=== PATIENT | female | born 1935 | race Caucasian/White ===

== ENCOUNTER 2020-01-29 15:29 | Emergency (ER) | payer MEDICARE, BC ==
[2020-01-29] MEDS ORDERED: Sodium Chloride 0.9% 10 ML Syringe FLUSH PRN (15:37)
[2020-01-29] MEDS ORDERED: Diltiazem 50 MG/10 ML SDV IVPUSH ONE (16:03)
--- NOTE | 2020-01-29 16:10 | EDM.PDOC ---
ED HPI GENERAL MEDICAL PROBLEM - General Chief Complaint: General Stated Complaint: ER Time Seen by Provider: 01/29/20 15:29 Source of Information: Reports: Patient History Limitations: Reports: No Limitations - History of Present Illness INITIAL COMMENTS - FREE TEXT/NARRATIVE: Patient comes in the emergency department complaints of rapid heartbeat and an episode of diaphoresis. Patient was being seen over at the clinic and states that she was instructed to report to the emergency department for further evaluation and management. Her primary care provider had contacted the emergency department stated that the patient had an episode of diaphoresis and shortness of breath approximately 8 or 9 AM this morning the loss about 5 to 10 minutes. The patient has advised that she has had this happen in the past and it goes away on its own. The patient states that it did go away on its own again this morning without any intervention. She denies Doing anything that made the symptoms worse or better she states that just disappeared after she ate some protein and a bowl of cereal. While in the clinic PCP completed an EKG and it did show rapid atrial fibrillation with noted changes. Patient remains symptom-free throughout the rest of the day. She also states that she currently just feels weak and tired but denies feeling a diaphoresis or other chest palpitations that she did this morning. Patient denies any recent COVID-19 symptoms or fever, dizziness, lightheadedness, increased shortness of breath above her baseline, abdominal pain, concerns, or peripheral edema. Onset: Sudden, Gradual Location: Reports: Chest Quality: Reports: Other Severity: Mild Improves with: Reports: None Worsens with: Reports: None Context: Reports: Other Associated Symptoms: Reports: Diaphoresis Treatments [facility] DIRECT[facility]: Reports: Other (see below) (was seen in the clinic. EKG completed) - Related Data Allergies Allergy/AdvReac Type Severity Reaction Status Date / Time MURIEL Inhibitors Allergy Bronchospas Verified 01/29/20 16:02 ms amoxicillin [Amoxicillin] Allergy Hives Verified 01/29/20 16:02 influenza virus vaccine, Allergy Nausea and Verified 01/29/20 16:02 specific Vomiting [Influenza Virus Vacc,Specific] tape Allergy Rash Uncoded 06/01/13 10:59 Home Meds: Home Meds Desoximetasone [Topicort 0.25% Oint] 1 - 2 applic TOP BID 06/01/13 [History] Ezetimibe [Zetia] 10 mg PO DAILY 06/01/13 [History] Losartan [Cozaar] 100 mg PO DAILY 06/01/13 [History] Covington-3 Fatty Acids [Covington-3] 1,000 mg PO DAILY 06/01/13 [History] Saline Nasal Gel 1 applic NASBOTH BID PRN 06/01/13 [History] Viactiv 2 tab PO DAILY 06/01/13 [History] hydroCHLOROthiazide [Hydrochlorothiazide] 25 mg PO DAILY 06/01/13 [History] Magnesium Oxide 400 mg PO DAILY 01/29/20 [History] Meclizine [Antivert] 12.5 - 25 mg PO Q4H PRN 01/29/20 [History] Naproxen Sodium [Aleve] 220 mg PO DAILY 01/29/20 [History] Potassium Gluconate [Potassium] 99 mg PO DAILY 01/29/20 [History] Ubidecarenone [Co Q-10] 100 mg PO DAILY 01/29/20 [History] Zinc 50 mg PO DAILY 01/29/20 [History] ED ROS GENERAL - Review of Systems Review Of Systems: Comprehensive ROS is negative, except as noted in HPI. Constitutional: Reports: No Symptoms HEENT: Reports: No Symptoms Respiratory: Reports: No Symptoms Cardiovascular: Reports: Dyspnea on Exertion (chronic and occurs daily ), Palpitations Endocrine: Reports: No Symptoms GI/Abdominal: Reports: No Symptoms : Reports: No Symptoms Musculoskeletal: Reports: No Symptoms Skin: Reports: No Symptoms Neurological: Reports: No Symptoms Psychiatric: Reports: No Symptoms Hematologic/Lymphatic: Reports: No Symptoms Immunologic: Reports: No Symptoms ED EXAM, GENERAL - Physical Exam Exam: See Below Exam Limited By: No Limitations General Appearance: Alert, WD/WN, No Apparent Distress Eye Exam: Bilateral Eye: EOMI, PERRL Nose: Normal Inspection, Normal Mucosa, No Blood Throat/Mouth: Normal Inspection, Normal Voice, No Airway Compromise Head: Atraumatic, Normocephalic Neck: Normal Inspection, Supple, Non-Tender, Full Range of Motion Respiratory/Chest: No Respiratory Distress, Lungs Clear, Normal Breath Sounds, No Accessory Muscle Use, Chest Non-Tender Cardiovascular: No Edema, No JVD, No Rub, Tachycardia, Irregularly Irregular Peripheral Pulses: 4+: Radial (L), Radial (R), Dorsalis Pedis (L), Dorsalis Pedis (R) GI/Abdominal: Normal Bowel Sounds, Soft, Non-Tender, No Abnormal Bruit, No Mass (Female) Exam: Deferred Rectal (Female) Exam: Deferred Back Exam: Normal Inspection, Full Range of Motion Extremities: Normal Inspection, Normal Range of Motion, Non-Tender, No Pedal Edema, Normal Capillary Refill Neurological: Alert, Oriented, Normal Gait, Normal Reflexes Psychiatric: Normal Affect, Normal Mood Skin Exam: Warm, Dry, Intact Course - Vital Signs Last Recorded V/S: Last Vital Signs Temp 36.5 C 01/29/20 15:35 Pulse 110 H 01/29/20 15:35 Resp 16 01/29/20 15:35 BP 153/84 H 01/29/20 15:35 Pulse Ox 96 01/29/20 15:35 - Orders/Labs/Meds Orders: Active Orders 24 hr Category Date Time Status Cardiac Monitoring [RC] . DIRECTED Care 01/29/20 15:37 Active Sodium Chloride 0.9% [Normal Saline] 1,000 ml Med 01/29/20 16:15 Active IV ASDIRECTED Sodium Chloride 0.9% [Saline Flush] Med 01/29/20 15:37 Active 10 ml FLUSH ASDIRECTED PRN Peripheral IV Insertion Adult [OM.PC] Stat Oth 01/29/20 15:37 Ordered Medication Orders Sodium Chloride (Normal Saline) 1,000 mls @ 125 mls/hr IV ASDIRECTED [facility] Last Admin: 01/29/20 16:12 Dose: 125 mls/hr Documented by: JACKSON Sodium Chloride (Saline Flush) 10 ml FLUSH ASDIRECTED PRN PRN Reason: Keep Vein Open Labs: Laboratory Tests 01/29/20 01/29/20 01/29/20 Range/Units 15:50 15:50 15:50 WBC 5.7 (4.0-10.0) x10^3/uL RBC 4.43 (4.00-5.50) x10^6/uL Hgb 13.8 (12.0-16.0) g/dL Hct 39.6 (33.0-47.0) % MCV 89.4 (78.0-93.0) fL MCH 31.2 (26.0-32.0) pg MCHC 34.8 (32.0-36.0) g/dL RDW Coeff of Kathy 12.6 (10.0-15.0) % Plt Count 173 (130-400) x10^3/uL Neut % (Auto) 60.7 (50.0-80.0) % Lymph % (Auto) 27.2 (25.0-50.0) % Dickens % (Auto) 10.5 (2.0-11.0) % Eos % (Auto) 1.4 (0.0-4.0) % Baso % (Auto) 0.2 (0.2-1.2) % PT 10.0 (9.5-12.3) SEC INR 0.9 L (2.0-3.5) Sodium 140 (136-145) mmol/L Potassium 3.6 (3.5-5.1) mmol/L Chloride 102 (98-107) mmol/L Carbon Dioxide 28 (21-32) mmol/L Anion Gap 13.6 (10-20) mmol/L BUN 28 H (7-18) mg/dL Creatinine 1.0 (0.55-1.02) mg/dL Est Cr Clr Drug Dosing 34.87 mL/min Estimated GFR (MDRD) 53 Glucose 140 H (74-106) mg/dL Calcium 9.6 (8.5-10.1) mg/dL Corrected Calcium 9.76 (8.5-10.1) mg/dL Total Bilirubin 0.3 (0.2-1.0) mg/dL AST 20 (15-37) U/L ALT 29 (14-59) U/L Alkaline Phosphatase 65 (46-116) U/L Creatine Kinase 79 (26-192) U/L Troponin I 0.018 (<=0.056) ng/mL NT-Pro-B Natriuret Pep 249 (<=450) pg/mL Total Protein 7.3 (6.4-8.2) g/dL Albumin 3.8 (3.4-5.0) g/dL Globulin 3.5 Albumin/Globulin Ratio 1.09 Meds: Medications Generic Name Dose Route Start Last Admin Trade Name Freq PRN Reason Stop Dose Admin Sodium Chloride 1,000 mls @ 125 mls/hr 01/29/20 16:15 01/29/20 16:12 Normal Saline IV 125 mls/hr ASDIRECTED BENJAMIN Administration Sodium Chloride 10 ml 10/23/20 15:37 Saline Flush FLUSH ASDIRECTED PRN Keep Vein Open Discontinued Medications Generic Name Dose Route Start Last Admin Trade Name Gurpreet PRN Reason Stop Dose Admin Diltiazem HCl 20 mg 01/29/20 16:03 01/29/20 16:12 Cardizem IVPUSH 01/29/20 16:04 20 mg ONETIME ONE Administration - Re-Assessments/Exams Free Text/Narrative Re-Assessment/Exam: 01/29/20 18:06 pt continues to remain in sinus rhythm with rate in the 50-60's. No further symptoms or concerns. Patient would like to be discharged and will return if symptoms return or follow up on Saturday. VSS pt alert and oriented. Departure - Departure Time of Disposition: 18:15 Disposition: Home, Self-Care 01 Condition: Good Clinical Impression: A-fib Qualifiers: Atrial fibrillation type: persistent (not longstanding) Qualified Code(s): I48.19 - Other persistent atrial fibrillation; I48.1 - Persistent atrial fibrillation - Discharge Information *PRESCRIPTION DRUG MONITORING PROGRAM REVIEWED*: Not Applicable *COPY OF PRESCRIPTION DRUG MONITORING REPORT IN PATIENT FILOMENA: Not Applicable Instructions: Atrial Fibrillation, [id number], Aspirin, ASA oral tablets Forms: ED Department Discharge Additional Instructions: 1. rest 2. increase your water intake 3. Continue all at home medications 4. Activity and diet as tolerated 5. Can take over the counter Tylenol for any pain or discomfort 6. Follow up with PCP if symptoms continue, return, or progress 7. Call with any questions or concerns 8. Recommendations are to follow up in the clinic Saturday for re-evaluation. Will need to call and make an appointment 9. Take a daily ASA 81mg PO until your appointment with your PCP Sepsis Event Note (ED) - Focused Exam Vital Signs: Vital Signs Temp Pulse Resp BP Pulse Ox 01/29/20 15:35 36.5 C 110 H 16 153/84 H 96 - My Orders Last 24 Hours: My Active Orders 01/29/20 15:37 Cardiac Monitoring [RC] . DIRECTED Sodium Chloride 0.9% [Saline Flush] 10 ml FLUSH ASDIRECTED PRN Peripheral IV Insertion Adult [OM.PC] Stat 01/29/20 16:15 Sodium Chloride 0.9% [Normal Saline] 1,000 ml IV ASDIRECTED - Assessment/Plan Last 24 Hours: My Active Orders 01/29/20 15:37 Cardiac Monitoring [RC] . DIRECTED Sodium Chloride 0.9% [Saline Flush] 10 ml FLUSH ASDIRECTED PRN Peripheral IV Insertion Adult [OM.PC] Stat 01/29/20 16:15 Sodium Chloride 0.9% [Normal Saline] 1,000 ml IV ASDIRECTED Assessment:: 1. Rapid Atrial Fibrillation <48 hours 2. Tachycardia Plan: 1. Labs completed in the ER. Results reviewed with the patient 2. IV initiated in the emergency department 3. IV fluids provided 4. Chest x-ray completed in ER. 5. EKG reviewed from clinic. Rapid A.fib noted. 6. Cardizem 20mg IV push given to help control A. Fib 7. conversion from rapid a. fib to sinus rhythm 60's. 1630 Patient resting with no discomfort or residual symptoms 8. ASA 81mg given in ER. 9. Patient and nursing staff was updated regarding the plan of care 10. Education provided the patient regarding activity, diet, rest, [id number] medication modalities, and follow-up care was provided 11. Patient and family are agreeable to the above plan of care 12. All questions and concerns were addressed with the patient and family prior to discharge
[2020-01-29] MEDS ORDERED: Sodium Chloride 0.9% 1,000 ML IV SCH (16:15)
[2020-01-29 16:23] LABS: ANION GAP 13.6 mmol/L (10-20)
--- NOTE | 2020-01-29 16:34 | CR ---
[id number] RAD/RAD Chest PA or AP 1V EXAM: RAD Chest PA or AP 1V INDICATION: HEART PALPITATIONS. COMPARISON: None. DISCUSSION: Cardiomediastinal silhouette is normal in size and contour. Lungs are clear. No pleural effusion or pneumothorax. IMPRESSION: Negative examination of the chest. Gildardo Fitch MD 01/29/20 [id number] Thank you for allowing us to participate in the care of your patient.
[2020-01-29] MEDS ORDERED: Aspirin 81 MG Tab.Chew PO ONE (16:38)
== END 2020-01-29 18:25 | disposition home or self-care (01) ==
LOC: VM.ED 15:29
DX: I48.19 Other persistent atrial fibrillation (principal); Z88.7 Allergy status to serum and vaccine; Z88.1 Allergy status to other antibiotic agents; Z88.8 Allergy status to other drugs, medicaments and biological substances; R06.02 Shortness of breath
CPT/HCPCS: 36415; 71045; 80053; 82550; 83880; 84484; 85025; 85610; 93005; 96374; 99284; 99285-25; A9270-GY; J3490; J7030